=== PATIENT | male | born 1985 | race Two or more races ===

== ENCOUNTER 2019-05-28 06:37 | Day surgery (SDC) | payer BC, OTHER ==
[~2019-05-28] VITALS: Ht 167.6 cm; Wt 80.7 kg
[2019-05-28] VITALS (11 sets, daily range): BP systolic 116–151; BP diastolic 69–93; PULSE 52–72; RESP 13–24; Ht 167.6 cm; Wt 80.7 kg
[~2019-05-28 06:37] MED LIST: ERGO2000 PO; METF500T24 PO
[2019-05-28] MEDS ORDERED: SOD CHLORIDE 0.9% 1,000 ML IV SCH (07:30)
[2019-05-28] MEDS ORDERED: PROCHLORPERAZINE 10 MG INJ IV PRN (09:00)
[2019-05-28] MEDS ORDERED: ONDANSETRON 4 MG INJ IV PRN (09:00)
[2019-05-28] MEDS ORDERED: EPHEDrine 25 MG/5 ML SYG IV PRN (09:00)
[2019-05-28] MEDS ORDERED: FENTAnyl 50 MCG/ML VIAL IV PRN (09:00)
[2019-05-28] MEDS ORDERED: hydrALAzine 20 MG INJ IV PRN (09:00)
[2019-05-28] MEDS ORDERED: MEPERIDINE 25 MG INJ IV PRN (09:00)
[2019-05-28] MEDS ORDERED: HYDROmorphONE 1 MG/5 ML IV SYRINGE IV PRN ×3 (09:00)
[2019-05-28] MEDS ORDERED: SEVOFLURANE 15 MIN ONE (09:00)
[2019-05-28] MEDS ORDERED: DIPHENHYDRAMINE 50 MG INJ IV PRN (09:00)
[2019-05-28] MEDS ORDERED: LABETALOL HCL 20MG INJ IV PRN (09:00)
[2019-05-28] MEDS ORDERED: SUCCINYLCHOLINE CHLORIDE 100 MG/5 ML SYG IV ONE (09:06)
[2019-05-28] MEDS ORDERED: PROPOFOL 20 ML ONE (09:06)
[2019-05-28] MEDS ORDERED: LIDOCAINE 2% (SDV) 5 ML INJ ONE (09:06)
[2019-05-28] MEDS ORDERED: MIDAZOLAM 1 MG/ML 2 ML INJ ONE (09:06)
[2019-05-28] MEDS ORDERED: COCAINE 4% 4 ML TOP ONE (09:23)
[2019-05-28] MEDS ORDERED: ONDANSETRON 4 MG INJ ONE (09:25)
[2019-05-28] MEDS ORDERED: FAMOTIDINE 20 MG INJ ONE (09:25)
[2019-05-28] MEDS ORDERED: DEXAMETHASONE 4 MG/ML 5 ML INJ ONE (09:25)
[2019-05-28] MEDS ORDERED: ROCURONIUM 50 MG INJ ONE (09:25)
[2019-05-28] MEDS ORDERED: FENTAnyl 50 MCG/ML VIAL ONE (09:28)
[2019-05-28] MEDS ORDERED: SUGAMMADEX SODIUM 200 MG/2 ML VIAL IV ONE (09:50)
[2019-05-28] MEDS ORDERED: HYDROCODONE/APAP (7.5/325) TAB PO PRN (10:30)
== END 2019-05-28 11:49 | disposition home or self-care (01) ==
LOC: SDS 06:37
PROVIDERS: ATTEND Otolaryngology Otolaryngology/Facial Plastic Surgery
DX: E11.9 Type 2 diabetes mellitus without complications (principal); Z87.891 Personal history of nicotine dependence
CPT/HCPCS: 31541; 82962; 88305; J1100; J2250; J2405; J3010; Z7512; Z7610